=== PATIENT | female | born 1975 | race Caucasian/White ===

== ENCOUNTER 2017-06-28 10:31 | Emergency (ER) | payer OTHER, SELFPAY ==
[2017-06-28 10:41] VITALS: BP 162/91; PULSE 98; TEMP 97.8; O2SAT 97
--- NOTE | 2017-06-28 11:45 | C.PDOC ---
History Of Present Illness 41 yr old female presents to the ER for evaluation of worsening rash for the past 1 week. Patient states chronic rash to the left lower foot for the past 1 year but now with new onset of rash to the right foot and right index finger for the past 1 week and the rash is now more red. Patient reports of burning to local area of chronic rash. Patient states she has never been formally diagnosed with psoriases "I just thought that's what I had". Patient denies any medicine use, discharge from the area, fever, chills, weakness or numbness of the foot. WORSENING RASH X 1 WEEK. PS CHRONIC RASH L LOWER FOOT X 1 YEAR BUT NOW W NEW ONSET RASH R FOOT, R INDEX FINGER X 1 WEEK. CHRONIC RASH NOW MORE RED. NO FEVER , DC. BURNING TO LOCAL AREA OF CHRONIC RASH. NO MEDS TRIED. DENIES FORMALLY DIAGNOSED PSORIASIS "I JUST THOUGHT THAT'S WHAT I HAD" EXAM NAD SKIN EXCORIATED DRY ULCERATION W SCABS L MED MALL W SEVERE LOCAL DRYNESS. ? CONTACT DERMATITIS . NO DC. DRY LESIONS MAL R FOOT, R INDEX FINGER. NO ERYTHEMA , DC. MIN LOCAL LSWELL TO AREA EXT ATRAUM AROM WO DIFF REMAINDER NEG Time Seen by Provider: 06/28/17 11:09 Chief Complaint (Nursing): Abnormal Skin Integrity History Per: Patient History/Exam Limitations: no limitations Onset/Duration Of Symptoms: Days Past Medical History Reviewed: Historical Data, Nursing Documentation, Vital Signs Vital Signs: Last Vital Signs Temp 97.8 F 06/28/17 10:38 Pulse 98 H 06/28/17 10:38 Resp 20 06/28/17 10:38 BP 162/91 H 06/28/17 10:38 Pulse Ox 97 06/28/17 12:05 - Medical History PMH: HTN Family History: States: No Known Family Hx - Social History Hx Tobacco Use: No Hx Alcohol Use: No Hx Substance Use: No - Immunization History Hx Tetanus Toxoid Vaccination: No Hx Influenza Vaccination: No Hx Pneumococcal Vaccination: No Review Of Systems Except As Marked, All Systems Reviewed And Found Negative. Constitutional: Negative for: Fever, Chills Skin: Positive for: Rash (Chornic rash to left lower foot. New onset to right foot, right index finger.) Neurological: Negative for: Weakness, Numbness Physical Exam - Physical Exam Appears: Non-toxic, No Acute Distress Skin: Warm, Dry, Other ((+) Excoriated, dry ulceration with scabs to the left med malleolus with severe local dryness. ? dermatitis. No dischagre. Dry lesions the malleolus of the right foot, right index finger. No errythema. No discharge. Minimal local swelling to area. ) Head: Atraumatic, Normacephalic Extremity: Normal ROM, No Swelling Neurological/Psych: Oriented x3, Normal Speech, Normal Motor, Normal Sensation ED Course And Treatment O2 Sat by Pulse Oximetry: 97 (RA) Pulse Ox Interpretation: Normal Progress - Re-Evaluation Re-evaluation Note: 06/28/17 11:46 D/W PODIATRY RESIDENT WILL EVAL 06/28/17 13:47 SP PODIATRY EVAL: POSSIBLE PSORISIS? FU CLINIC. DC STEROID, ABX - Continuity of Care Discussed pt. case with it sales consultant/specialty: Podiatry Medical Decision Making Medical Decision Making: PLAN: * Keflex PO * Prednisone PO Disposition Counseled Patient/Family Regarding: Diagnosis, Need For Followup, Rx Given - Disposition [facility] [Outside] Disposition: HOME/ ROUTINE Disposition Time: 13:48 Condition: IMPROVED Prescriptions: Cephalexin [cephalexin] 500 mg PO Q6 #28 cap predniSONE [Prednisone] 60 mg PO DAILY #12 tab Instructions: Contact Dermatitis (ED), Cellulitis (ED) Forms: [facility] (Japanese) - Clinical Impression Clinical Impression: Cellulitis, Contact dermatitis - Scribe Statement The provider has reviewed the documentation as recorded by the Afshin Kumar Provider Attestation: All medical record entries made by the Afshin were at my direction and personally dictated by me. I have reviewed the chart and agree that the record accurately reflects my personal performance of the history, physical exam, medical decision making, and the department course for this patient. I have also personally directed, reviewed, and agree with the discharge instructions and disposition.
[2017-06-28 13:48] VITALS: RESP 18
--- NOTE | 2017-06-28 14:44 | CP.PCM.CON ---
History of Present Illness - History of Present Illness History of Present Illness: 41 y/0 female with PMHx of HTN and hyperlipidemia seen and evaluated at bedside for a chronic rash on her left foot. Patient states that she has had a rash on the inside of the right foot for about a year. Patient states that recently she started getting a similar rash on the outside of the left foot as well. Patient states that the rash started spreading to her right leg on the ankle. Patient states that the same rash appeared on the right index finger and the 5th finger. Patient states that the rash is very itchy. Patient states that the rash feels burning and causes her to itch. Patient states that she has been putting hydrocortisone cream on the rash which helps her with the burning and itching. Patient denies of seeking any other medical attention prior to coming to the ED today. Patient denies of getting new detergent, socks, shoes, sheets, pets or anything that may make the condition worst. Patient denies of any other pedal complains at this time. PMHx: HTN and hyperlipidemia PSHx: denies Allergies: N.K.D.A SHx: denies smoking, EtOH use or illicit drug usage Review of Systems - Constitutional Constitutional: As Per HPI Past Patient History - Infectious Disease Hx of Infectious Diseases: None - Past Social History Smoking Status: Never Smoked - CARDIAC Hx Hypertension: Yes - INTEGUMENTARY Hx Psoriasis: Yes - PSYCHIATRIC Hx Substance Use: No - SURGICAL HISTORY Hx Surgeries: No Meds Home Medications: Home Medication List Medication Instructions Recorded Confirmed Type Cephalexin [cephalexin] 500 mg PO Q6 #28 cap 06/28/17 Rx predniSONE [Prednisone] 60 mg PO DAILY #12 tab 06/28/17 Rx Allergies/Adverse Reactions: Allergies Allergy/AdvReac Type Severity Reaction Status Date / Time No Known Allergies Allergy Verified 06/28/17 10:41 Physical Exam - Constitutional Appears: Well, Non-toxic, No Acute Distress - Extremities Exam Additional comments: Bilateral lower extremity exam: VASC: DP/PT pulses are palpable 2/4, Cap refill time: < 3 sec to all digits, Temp gradient: warm to cool from proximal to distal, mild non-pitting edema noted non the bilateral dorsum of the feet as well as distal legs DERM: Superficial excoriation with scaly plaques on erythematous base noted on the bilateral medial and lateral ankle at the level of medial and lateral malleolus, small papules with serous drainage noted form the bilateral ankle, mild purulent drainage at the level of the excoriations, surrounding erythema noted, no malodor NEURO: Protective sensation grossly intact ORTHO: no pain on palpation of the lesions, MMT: 5/5 on bilateral feet in all 4 compartments HAND digits appear sausage type and swollen - Neurological Exam Neurological exam: Alert, Oriented x3 - Psychiatric Exam Psychiatric exam: Normal Affect, Normal Mood Results - Vital Signs Recent Vital Signs: Last Vital Signs Temp 97.8 F 06/28/17 10:38 Pulse 98 H 06/28/17 10:38 Resp 18 06/28/17 13:48 BP 162/91 H 06/28/17 10:38 Pulse Ox 97 06/28/17 13:48 Assessment & Plan - Assessment and Plan (Free Text) Assessment: 41 y/o female seen and evaluated at bedside in ED for possible pustular psoriasis Plan: Patient seen and evaluated at bedside Patient discussed in details with attending Dr. Sampson Patient advised the possible cause of the lesions Patient educated the importance of following up with the primary care doctor and the podiarty clinic Patient educated the importance of possible biopsying the lesion in podiatry clinic Recommend giving medrol dose pack and augmentin 875 mg BID for 7 days Patient educated apply dressing on the feet and finger at home and prevent from scratching Patient demonstrated verbal understanding Thank you for the podiatry consult and allowing to take part in patient care - Date & Time Date: 06/28/17 Time: 14:54
== END 2017-06-28 13:48 | disposition home or self-care (01) ==
LOC: C.ER 10:31
DX: L25.9 Unspecified contact dermatitis, unspecified cause (principal); L03.116 Cellulitis of left lower limb